=== PATIENT | male | born 1950 | race Hispanic/Latino ===

== ENCOUNTER → 2020-04-24 | Outpatient (CLI) | payer OTHER | END | disposition home or self-care (01) | LOC: RAH 10:47 | PROVIDERS: ATTEND Internal Medicine Cardiovascular Disease | DX: Z13.6 Encounter for screening for cardiovascular disorders (principal) | CPT/HCPCS: 75571 ==

== ENCOUNTER → 2023-08-11 | Outpatient (CLI) | payer BC, MEDICARE ==
[2023-08-11 12:54] LABS: CHOLESTEROL 119 mg/dL (<200); HDL CHOLESTEROL 43 mg/dL (29-71); LDL DIRECT 65 mg/dL (0-99); TRIGLYCERIDES 112 mg/dL (30-200)
== END | disposition home or self-care (01) ==
LOC: LAB 09:26
PROVIDERS: ATTEND Internal Medicine Cardiovascular Disease
DX: I10 Essential (primary) hypertension (principal)
CPT/HCPCS: 36415; 80061

== ENCOUNTER 2023-08-22 13:02 | Emergency (ER) | payer BC, MEDICARE ==
[~2023-08-22] VITALS: Ht 177.8 cm; Wt 86.2 kg
[2023-08-22] MEDS ORDERED: KETOROLAC 30MG VIAL (30MG/ML) IVP ONE (14:00)
[2023-08-22] MEDS ORDERED: 0.9%NACL 1000ML 1,000 ML IV ONE (14:00)
[2023-08-22 14:23] LABS: BASOPHILS # (AUTO) 0.04 K/uL (0.00-0.20); BASOPHILS % (AUTO) 0.6 % (0.0-5.0); EOSINOPHILS # (AUTO) 0.12 K/uL (0.00-0.70); EOSINOPHILS % (AUTO) 1.8 % (0.0-8.0); HEMATOCRIT 38.5 % (42-54); IMMATURE GRANULOCYTE ABSOLUTE 0.05 K/uL (0-1); LYMPHOCYTES # (AUTO) 0.6 K/uL (1.0-4.8); LYMPHOCYTES % (AUTO) 9.2 % (21.0-51.0); MEAN CORPUSCULAR HEMOGLOBIN 29.6 pg (27.0-33.0); MEAN CORPUSCULAR HGB CONC 34.3 g/dL (32.0-36.0); MEAN CORPUSCULAR VOLUME 86.3 fL (79-99); MONOCYTES # (AUTO) 0.8 K/uL (0.1-1.0); MONOCYTES % (AUTO) 11.5 % (3.0-13.0); NEUTROPHILS # (AUTO) 5.2 K/uL (1.8-7.7); NEUTROPHILS % (AUTO) 76.2 % (40.0-77.0); PLATELET COUNT (AUTO) 177 K/uL (130-400); RED BLOOD CELL COUNT(AUTO) 4.46 MIL/uL (4.50-6.20); WHITE BLOOD COUNT (AUTO) 6.8 K/uL (4.8-10.8)
[2023-08-22 14:35] LABS: CREATININE 1.7 mg/dL (0.5-1.5); POTASSIUM 4.6 mmol/L (3.5-5.1)
[2023-08-22 14:39] LABS: ALBUMIN 3.8 g/dL (3.5-5.0); BILIRUBIN,TOTAL 1.1 mg/dL (0.2-1.0); TOTAL PROTEIN, SERUM 7.4 g/dL (6.0-8.3)
[2023-08-22 14:42] LABS: APPEARANCE,URINE CLEAR (CLEAR); BILIRUBIN,URINE NEGATIVE (NEGATIVE); GLUCOSE, URINE (UA) NEGATIVE (NEGATIVE); KETONES,URINE NEGATIVE (NEGATIVE); LEUKOCYTE ESTERASE ,URINE 25 Leu/uL (NEGATIVE); NITRATE,URINE NEGATIVE (NEGATIVE); OCCULT BLOOD,URINE LARGE (NEGATIVE); PROTEIN,URINE 20 mg/dL (NEGATIVE); UROBILINOGEN,URINE 0.2 mg/dL (0.2-1.0)
[2023-08-22 14:51] LABS: ADD UA MICROSCOPIC YES
[2023-08-22 14:52] LABS: COLOR,URINE LIGHT-RED (YELLOW)
[2023-08-22 14:53] LABS: BACTERIA,URINE FEW /HPF (None Seen)
[2023-08-22] MEDS ORDERED: IOHEXOL-350 75 ML VIAL IV ONE (15:08)
[2023-08-22 15:52] VITALS: PULSE 86
[2023-08-22 17:05] VITALS: BP 138/79; RESP 18; O2SAT 98
== END 2023-08-22 17:44 | disposition home or self-care (01) ==
LOC: EDH 13:02
DX: C64.2 Malignant neoplasm of left kidney, except renal pelvis (principal); C64.1 Malignant neoplasm of right kidney, except renal pelvis; R31.9 Hematuria, unspecified; R10.31 Right lower quadrant pain; Z88.5 Allergy status to narcotic agent
CPT/HCPCS: 99284; 74177; 96374; 96361; 80053; 83690; 85025; 87088; 81001; 36415; J7030; J1885; Q9967

== ENCOUNTER → 2024-10-05 | Outpatient (CLI) | payer BC, MEDICARE ==
--- NOTE | 2024-10-05 13:06 | HMCSR ---
APPROVED REPORT Laterality: Bilateral Indications Atherosclerosis Doppler Spectral Velocity Analysis PSV / EDVPSV / EDV ECA (R) 119 / cm/sECA (L) 114 / cm/s dICA (R) 132 / 40 cm/sdICA (L) 125 / 42 cm/s Ezekiel (R) 136 / 46 cm/smICA (L) 197 / 64 cm/s pICA (R) 93 / 21 cm/spICA (L) 86 / 18 cm/s dCCA (R) 115 / 30 cm/sdCCA (L) 92 / 27 cm/s mCCA (R) 122 / 31 cm/smCCA (L) 120 / 25 cm/s pCCA (R) 129 / 28 cm/spCCA (L) 97 / 16 cm/s Vert (R) 60 / cm/sVert (L) 63 / cm/s Subl. (R) 162 / cm/sSubl. (L) 147 / cm/s ICA/CCA 1.05ICA/CCA 1.64 Technologist Impression Mild plaque noted in the bilateral carotids. CONSUELO highest velocity of 136 cm/s suggestive of 50-69 % stenosis. LICA highest velocity of 197 cm/s suggestive of 50-69% stenosis. Bilateral vertebral arteries appear antegrade. Conclusion As above. Conclusion As above.
== END | disposition home or self-care (01) ==
LOC: SHCH 08:20
PROVIDERS: ATTEND Internal Medicine Cardiovascular Disease
DX: I65.23 Occlusion and stenosis of bilateral carotid arteries (principal); I25.10 Atherosclerotic heart disease of native coronary artery without angina pectoris
CPT/HCPCS: 93880